=== PATIENT | female | born 1935 | race Caucasian/White ===

== ENCOUNTER 2017-04-25 05:43 | Emergency (ER) | payer MEDICARE, OTHER, SELFPAY ==
[2017-04-25 05:44] VITALS: BP 204/74; PULSE 66; RESP 18; TEMP 36.9; O2SAT 97; BMI 20.9
[2017-04-25 05:47] VITALS: BP 198/82; PULSE 71; O2SAT 99
--- NOTE | 2017-04-25 06:13 | ED.VISSUMM ---
- ER Visit Summary Date of Service: 04/25/17 Addendum: Patient was checked out to me by Dr. Arizmendi with a lactic acid pending. This is returned and is 1.0. The patient's been able to tolerate p.o. without any difficulty here. She feels well and would like to go home. She will be discharged per Dr. Franco's dictation. Instructed to return to the emergency department for any worsening symptoms. This note was generated with [employer] dictation software. It may contain incorrect words, spelling, and punctuation that were not noted in review of the chart prior to signing <Willy Cortes - Last Filed: 04/25/17 16:53> - ER Visit Summary Date of Service: 04/25/17 Chief Complaint: Abdominal pain History of Present Illness: The patient is a 82 F presenting with right upper quadrant abdominal pain ?4 days. She has been seeing her primary care physician's office for these complaints. She had an ultrasound which showed a mildly distended gallbladder. She had a CT abdomen yesterday with unknown results. She complains of persistent pain in the right upper quadrant. Denies fever. She has had nausea and vomiting with no episodes of vomiting today. She has had constipation. Denies chest pain or shortness of breath. Physical Examination: Vitals are stable. Patient is afebrile. Alert no acute distress. HEENT exam is unremarkable. Neck is supple. Lungs are clear and equal bilaterally. Heart is regular rate and rhythm. Abdomen is soft right upper quadrant tenderness, no rebound or guarding Extremities are unremarkable. Skin is warm and dry. No focal neurologic deficit. Remainder of exam is unremarkable. Emergency Department Course and Treatment: She was given Dilaudid and Zofran IV. CBC, chemistries unremarkable. Liver lipase are normal. D-dimer is normal. CT abdomen and pelvis results were obtained from [facility]. This showed mild dilatation of the pancreatic duct, common bile duct upper limits of normal. Recommend possible MRI. Patient continues to have right upper quadrant abdominal pain. Discussed with the hospitalist and her primary care physician Dr. Escudero. Dr Stover is at bedside and does not feel she qualifies for admission. He requests lactic acid and po challenge. Patient is signed out to the oncoming physician for re-evaluation. Disposition: pending re-eval Impression: Right upper quadrant abdominal pain This note was generated with [employer] dictation software. It may contain incorrect words, spelling, and punctuation that were not noted in review of the chart prior to signing <Sondra Arizmendi - Last Filed: 04/29/17 00:58> ED Disposition <Willy Cortes - Last Filed: 04/25/17 16:53> <Sondra Arizmendi - Last Filed: 04/29/17 00:58> - Plan for ED Patient: Disposition: Home or Assisted Living Chief Complaint: Abd Pain Instructions: ED Abdominal Pain Unkn Cause Prescriptions: Oxycodone HCl/Acetaminophen [Percocet 5/325] 1 tablet PO Q6H PRN PRN #12 tablet PRN Reason: Pain Referrals: Chacho Escudero III, MD [Primary Care Provider] -
[2017-04-25 06:18] LABS: Absolute Lymphocyte Count 2.16 X10^3/ul (0.83-4.51); Absolute Neutrophil Count 3.8 X10^3/uL (2.0-7.7); Basophil# 0.06 X10^3/uL; Basophil% 0.9 % (0-1); Eosinophil# 0.24 X10^3/uL; Eosinophils% 3.6 % (0-5); Hematocrit 37.7 % (37-47); Hemoglobin 12.3 g/dl (12.0-15.0); Lymphocyte # 2.16 X10^3/ul (4.0); Mean Corp Hgb Conc 32.6 g/gl (32-36); Mean Corpuscular Hgb 31.5 pg (27.0-32.0); Mean Corpuscular Volume 96.4 fL (81-99); Mean Platelet Vol. 9.2 fl (6.2-12.0); Monocyte# 0.51 X10^3/uL; Monocyte% 7.6 % (0-10); Neutrophil # 3.75 X10^3/uL (2.7-7.7); Neutrophil % 55.6 % (47-70); Platelet Count 303 K/mm3 (150-450); RBC Distribution Width CV 13.1 % (11.6-14.6); RBC Distribution Width SD 45.4 fl (35.1-43.9); Red Blood Count 3.91 M/mm3 (4.2-5.4); White Blood Count 6.7 K/mm3 (4.4-11.0)
[2017-04-25 06:19] LABS: POSITIVE COUNT NO; POSITIVE DIFFERENTIAL NO; POSITIVE MORPHOLOGY NO
[2017-04-25 06:38] LABS: D-Dimer Quantitative (DVT/PE) 0.41 FEU/ug/m (0.27-0.49)
[2017-04-25 06:47] LABS: AST(SGOT) 18 U/L (15-37); Alanine Aminotransfer ALT/SGPT 30 U/L (12-78); Albumin, Serum 3.6 g/dL (3.4-5.0); Alkaline Phosphatase 70 U/L (45-117); Anion Gap 9 (5-15); BUN 11 mg/dL (7-18); BUN/Creat Ratio 13.9 RATIO (10-20); Bilirubin, Direct 0.08 mg/dL (0.00-0.30); Calcium,Total 8.6 mg/dL (8.5-10.1); Chloride 106 mmol/L (98-107); Creatinine, Serum 0.79 mg/dL (0.55-1.02); EST Glomerular Filtration Rate 74 mL/min (>60); Est Glom Filt Rate - Afr Amer 90 mL/min (>60); Estimated Creatinine Clearance 31.59 ml/min; Globulin 2.9 g/dL (2.2-4.2); Glucose 89 mg/dL (70-110); Lipase 119 U/L (73-393); Potassium 4.4 mmol/L (3.5-5.1); Protein, Total 6.5 g/dL (6.4-8.2); Sodium Level 144 mmol/L (136-145)
[2017-04-25] MEDS: HYDROmorphone 1 MG/ML Syringe 0.5 MG IV (09:55)
[2017-04-25] MEDS: Ondansetron 4 MG/2 ML Vial IV (09:56)
[2017-04-25 09:57] VITALS: BP 201/67; PULSE 75; RESP 18; O2SAT 98
--- NOTE | 2017-04-25 10:22 | ED.DEP ---
ED Disposition - Plan for ED Patient: Chief Complaint: Abd Pain Instructions: ED Abdominal Pain Unkn Cause Prescriptions: Oxycodone HCl/Acetaminophen [Percocet 5/325] 1 tablet PO Q6H PRN PRN #12 tablet PRN Reason: Pain Referrals: Chacho Escudero III, MD [Primary Care Provider] -
[2017-04-25 12:51] VITALS: BP 144/54; PULSE 63; RESP 18; O2SAT 97
[2017-04-25 13:22] VITALS: BP 145/98; PULSE 87; RESP 18; O2SAT 97
--- NOTE | 2017-04-25 17:48 | PCM.CONS.GEN ---
Problem List (1) Abdominal pain Status: Acute Reason for Consult Date of Consultation: 04/25/17 Reason for Consultation: abdominal pain History of Present Illness: The patient is a 82 year old F been having abdominal pain for the past week. Pain seems to be migrating over her abdomen in different spots in but going to her back. She has had a CAT scan that was unremarkable except for mild dilation of the pancreatic duct. Patient's lab work in the emergency room was grossly normal. I was asked by the emergency room doctor to admit patient for MRI. Patient was having some low-grade temperatures as outpatient and but it was his having his abdominal pain. Has never had anything like this before. Patient is also notably hypertensive with a systolic as high as 218. Patient did receive some Dilaudid after I had seen her and it did drop her into the 170s. Patient denies any history of hypertension. [] Past Medical History Allergies Sulfa (Sulfonamide Antibiotics) Allergy (Verified 04/25/17 06:07) Hives diphenhydramine [From Benadryl] Adverse Reaction (Verified 04/25/17 05:47) Hives morphine Adverse Reaction (Verified 04/25/17 05:47) Nausea Penicillins [PCN] Adverse Reaction (Verified 04/25/17 05:47) Hives rofecoxib [From Vioxx] Adverse Reaction (Verified 04/25/17 05:47) Unknown Home Medications: Ambulatory Orders Medication Instructions Recorded Oxycodone HCl/Acetaminophen 1 tablet PO Q6H PRN PRN #12 tablet 04/25/17 [Percocet 5/325] Smoking Status: Never smoker - *Family History Maternal History Items: - - No stroke or heart attack Review of Systems Constitutional: Reports: Chills, Fever. Denies: Anorexia Eyes: Denies: Blurred vision, Double vision HEENT: Denies: Head Aches, Sinus Congestion, Sinus Drainage Cardiovascular: Denies: Chest Pain, Palpitations Respiratory: Denies: Cough, Shortness of breath at rest, Sputum production Gastrointestinal: Reports: Abdominal Pain, Nausea, Vomiting Genitourinary: Denies: Dysuria Musculoskeletal: Denies: Joint Pain, Joint Tenderness Skin: Denies: Rash, Wounds Neurological: Denies: Numbness, Tingling, Focal weakness Hematologic/ Lymphatic: Denies: Easy Bruising, Easy Bleeding, Hx of blood clot Comment: Otherwise all review systems are negative except for as in the HPI and review of systems. - Physical Exam General: Alert, Oriented x3, Cooperative HEENT: Atraumatic, Normocephalic, - - No scleral icterus Neck: No Nodes, Thyroid Normal Size and Texture Lungs: Clear to auscultation, Normal air movement, No rhonchi, No wheeze Cardiovascular: Regular rate, Regular Rhythm, Normal S1, Normal S2, No murmurs Abdomen: Bowel Sounds Present, Soft, - Extremities: No edema, Capillary Refill Less than 3 Seconds, No Calf Tenderness Skin: No rashes, No breakdown Musculoskeletal: No Tenderness to Palpation of Joints or Extremities Psych/Mental Status: Normal Affect, Appropriate Vital Signs Temp Pulse Resp BP Pulse Ox 36.9 C 87 18 145/98 H 97 04/25/17 05:44 04/25/17 13:22 04/25/17 13:22 04/25/17 13:22 04/25/17 13:22 Oxygen Delivery Method Room Air Weight: 45.359 kg Body Mass Index (BMI) 20.9 Laboratory Tests Past 24 Hrs 04/25/17 04/25/17 04/25/17 06:05 06:05 06:05 WBC 6.7 RBC 3.91 L Hgb 12.3 Hct 37.7 MCV 96.4 MCH 31.5 MCHC 32.6 RDW 13.1 RDW Differential 45.4 H Plt Count 303 MPV 9.2 Immature Gran % (Auto) 0.300 Neut % (Auto) 55.6 Lymph % (Auto) 32.0 [place] % (Auto) 7.6 Eos % (Auto) 3.6 Baso % (Auto) 0.9 Absolute Neuts (auto) 3.8 Absolute Lymphs (auto) 2.16 Total Counted Not Reportable D-Dimer Quant (PE/DVT) 0.41 Sodium 144 Potassium 4.4 Chloride 106 Carbon Dioxide 29.0 Anion Gap 9 BUN 11 Creatinine 0.79 Estim Creat Clear Calc 31.59 Est GFR (MDRD) Af Amer 90 Est GFR (MDRD) Non-Af 74 BUN/Creatinine Ratio 13.9 Glucose 89 Lactic Acid Calcium 8.6 Total Bilirubin 0.30 Direct Bilirubin 0.08 AST 18 ALT 30 Alkaline Phosphatase 70 Total Protein 6.5 Albumin 3.6 Globulin 2.9 Lipase 119 01/25/18 10:45 WBC RBC Hgb Hct MCV MCH MCHC RDW RDW Differential Plt Count MPV Immature Gran % (Auto) Neut % (Auto) Lymph % (Auto) [place] % (Auto) Eos % (Auto) Baso % (Auto) Absolute Neuts (auto) Absolute Lymphs (auto) Total Counted D-Dimer Quant (PE/DVT) Sodium Potassium Chloride Carbon Dioxide Anion Gap BUN Creatinine Estim Creat Clear Calc Est GFR (MDRD) Af Amer Est GFR (MDRD) Non-Af BUN/Creatinine Ratio Glucose Lactic Acid 1.0 Calcium Total Bilirubin Direct Bilirubin AST ALT Alkaline Phosphatase Total Protein Albumin Globulin Lipase Assessment/Plan 1. Abdominal pain Workup has been unremarkable except for CAT scan with the slightly abnormal dilation in the pancreatic duct which is nonspecific. I did advise the emergency room to check a lactate as if that were elevated that could be a sign of ischemic colitis. They came back as negative and the CAT scan the patient had the day before did not show any evidence of any kind of colitis as well. Patient's lab work is unremarkable and completely normal which is surprising some of her age. I do not feel there is any medical necessity for patient to be admitted for this. And I have advised to a food challenge as well but the patient does not tolerate that then patient could be admitted but patient was subsequently discharged after I had initially evaluated her. 2. Hypertension Was very high when patient presented but did improve when she was discharged. Recommend patient follow-up with her primary care doctor for further retention management. Certainly given the patient's abdominal pain is certainly did cause her blood pressure to go up but did feel the patient has some underlying hypertension. Code Visit Office Visits / Consults: [id number] OP Consult L3
== END 2017-04-25 13:37 | disposition home or self-care (01) ==
PROVIDERS: Emergency Provider Emergency Medicine; Family Provider Family Medicine; PCP Family Medicine
DX: R10.11 Right upper quadrant pain (principal); I10 Essential (primary) hypertension; R11.2 Nausea with vomiting, unspecified; K59.00 Constipation, unspecified
CPT/HCPCS: 36415; 80048; 80076; 83605; 83690; 85025; 85379; 96374; 96375; 99283; J7050; A4216; J2405

== ENCOUNTER → 2017-05-09 07:50 | Outpatient (CLI) | payer MEDICARE, OTHER, SELFPAY ==
--- NOTE | 2017-05-09 07:55 | NM_ITS ---
CLINICAL: 82-year-old female with history of abdominal pain and nausea. RADIONUCLIDE HEPATOBILIARY SCINTIGRAPHY COMPARISON: Gallbladder ultrasound report 04/23/2017 FINDINGS: Following the intravenous administration of 6.0 mCi of 99m Tc Mebrofenin, hepatobiliary images reveal: 1. Relatively prompt and homogeneous radiopharmaceutical concentration is noted by a normal sized liver. No parenchymal defects are identified. 2. Gallbladder activity is identified at 10 minutes post radiopharmaceutical administration. 3. Small intestinal tract is observed at 45 minutes following tracer injection. 4. Washout of the radiopharmaceutical by the hepatic parenchyma appears qualitatively normal. Cholecystokinin (0.02 ug/kg) was administered intravenously over a 30-minute period. The post CCK gallbladder ejection fraction calculated at 20 minutes following Cholecystokinin administration was noted to be 96.0 % (normal greater than 35%). During 30 minutes of post CCK imaging, there is no scintigraphic evidence of reflux of the radiotracer into the common hepatic duct or refilling of the gallbladder. There is scintigraphic evidence of post CCK duodenal gastric reflux. NM/Hepatobilliary Img w/Pharm Int IMPRESSION: 1. A gallbladder ejection fraction calculated to be greater than 35% following the administration of Cholecystokinin makes the probability of functional hepatobiliary disease (gallbladder and/or sphincter of Oddi dyskinesia) and/or organic hepatobiliary disease (chronic acalculous cholecystitis and/or cystic duct syndrome) to be low. (Zenia Gregg et al, Journal of Nuclear Medicine 32:1695, 1990). 2. There is scintigraphic evidence of post CCK duodenal-gastric reflux. (Tom et al, Nucl Med Janice Anny Press pg. 35, 1980). Electronically Signed: Momo Shah DO at 10:10 EST Tel , Service support ,
== END ==
PROVIDERS: Family Provider Family Medicine; PCP Family Medicine; Visit Provider Family Medicine
DX: R10.11 Right upper quadrant pain (principal)
CPT/HCPCS: 78227; A9537; J2805